=== PATIENT | male | born 1940 | race Caucasian/White ===

== ENCOUNTER 2017-03-10 19:12 | Inpatient (IN) | payer MEDICARE ==
[~2017-03-10] VITALS: Ht 170.2 cm; Wt 80.9 kg
[2017-03-10 19:12] VITALS: BP 154/78
[~2017-03-10 19:12] MED LIST: ASPIRIN ADULT L81 M1 PO; ISOPTIN SR120 M1 PO; TORADOL10 MG PO
[2017-03-10 19:28] LABS: BASO % 0.1 % (0.0-1.0); EOS % 0.1 % (1.0-4.0); HEMATOCRIT 43.1 % (42.0-52.0); HEMOGLOBIN 15.4 g/dl (14.0-18.0); LYMPH # 1.1 10*3/uL (1.3-4.4); LYMPH % 15.9 % (27.0-41.0); MEAN CELL VOLUME 85.7 fl (80.0-94.0); MEAN CORPUSCULAR HGB 30.6 pg (27.0-31.0); MEAN CORPUSCULAR HGB CONC 35.7 g/dl (33.0-37.0); MEAN PLATELET VOLUME 10.1 fl (9.6-12.3); MONO # 0.4 10*3/uL (0.1-1.0); MONO % 5.9 % (3.0-9.0); NEUT # 5.4 10*3/uL (2.3-7.9); NEUT % 77.7 % (47.0-73.0); PLATELET COUNT AUTOMATED 111 10*3/uL (130-400); RED BLOOD COUNT 5.03 10*6/uL (4.50-5.90); RED CELL DISTRI WIDTH 12.3 % (0-14.5); WHITE BLOOD COUNT 6.9 10*3/uL (4.8-10.8)
[2017-03-10 19:38] LABS: PROTHROMBIN TIME 10.7 SECONDS (9.0-12.4)
[2017-03-10 19:46] LABS: ALBUMIN 4.4 gm/dl (3.1-4.5); ALKALINE PHOSPHATASE 142 U/L (45-117); BUN 10 mg/dl (7-24); CARBON DIOXIDE 27 mmol/L (21-32); CHLORIDE 101 mmol/L (98-107); EST GLOM FILT AFRICAN AMERICAN > 60 ml/min; GLUCOSE 261 mg/dL (65-99); MAGNESIUM 1.8 mg/dL (1.5-2.1); POTASSIUM 3.7 mmol/L (3.5-5.1); SGOT/AST 296 IU/L (3-35); SGPT/ALT 158 U/L (12-78); SODIUM 141 mmol/L (136-145); TOTAL PROTEIN 7.7 gm/dL (6.4-8.2)
[2017-03-10 19:48] LABS: TROPONIN I < 0.015 ng/ml (<0.045)
[2017-03-10 19:50] VITALS: BP 158/84
[2017-03-10 20:24] VITALS: BP 158/84
[2017-03-10 20:50] VITALS: BP 164/76
[2017-03-10 21:28] VITALS: BP 154/80
[2017-03-10 23:20] VITALS: BP 146/61
[2017-03-11] VITALS: BP 146/61
[2017-03-11 01:39] LABS: CKMB 0.9 ng/ml (0.5-3.6)
[2017-03-11 04:00] VITALS: BP 153/72
[2017-03-11 05:35] LABS: BUN 9 mg/dl (7-24); CARBON DIOXIDE 28 mmol/L (21-32); CHLORIDE 105 mmol/L (98-107); CHOLESTEROL 122 mg/dL (<200); EST GLOM FILT AFRICAN AMERICAN > 60 ml/min; FREE T4 1.09 ng/dl (0.76-1.46); GLUCOSE 249 mg/dL (65-99); HDL CHOLESTEROL 40 mg/dl (40-60); LDL CHOLESTEROL 69 mg/dL (9-159); POTASSIUM 4.3 mmol/L (3.5-5.1); SODIUM 142 mmol/L (136-145); TRIGLYCERIDES 67 mg/dl (<150); VLDL CHOLESTEROL 13 mg/dL (6-40)
[2017-03-11 05:41] LABS: THYROID STIM HORMONE (HS) 0.918 uIU/ml (0.358-4.75)
[2017-03-11 05:45] LABS: CKMB 0.9 ng/ml (0.5-3.6)
[2017-03-11 05:58] LABS: BASO % 0.4 % (0.0-1.0); EOS % 0.4 % (1.0-4.0); HEMATOCRIT 38.2 % (42.0-52.0); HEMOGLOBIN 13.5 g/dl (14.0-18.0); LYMPH # 1.3 10*3/uL (1.3-4.4); LYMPH % 27.3 % (27.0-41.0); MEAN CORPUSCULAR HGB 31.1 pg (27.0-31.0); MEAN CORPUSCULAR HGB CONC 35.3 g/dl (33.0-37.0); MEAN PLATELET VOLUME 10.6 fl (9.6-12.3); MONO # 0.3 10*3/uL (0.1-1.0); MONO % 7.4 % (3.0-9.0); NEUT % 64.3 % (47.0-73.0); PLATELET COUNT AUTOMATED 92 10*3/uL (130-400); RED BLOOD COUNT 4.34 10*6/uL (4.50-5.90); RED CELL DISTRI WIDTH 12.4 % (0-14.5); WHITE BLOOD COUNT 4.6 10*3/uL (4.8-10.8)
[2017-03-11 06:24] LABS: PROTHROMBIN TIME 11.1 SECONDS (9.0-12.4)
[2017-03-11 07:25] LABS: HEMOGLOBIN A1c 9.2 % (4.8-5.6)
[2017-03-11 07:27] LABS: FOLIC ACID 14.04 ng/mL (>5.38); VITAMIN D, 25-HYDROXY 32.4 ng/mL (30-100)
[2017-03-11 08:00] VITALS: BP 158/68
[2017-03-11 12:00] VITALS: BP 143/67
[2017-03-11 16:00] VITALS: BP 160/66
[2017-03-11 20:00] VITALS: BP 136/62
[2017-03-12] VITALS (9 sets, daily range): BP systolic 119–187; BP diastolic 50–88
[2017-03-12 06:04] LABS: BASO % 0.6 % (0.0-1.0); EOS % 0.4 % (1.0-4.0); HEMATOCRIT 40.1 % (42.0-52.0); IG # 0.1 10*3/uL (0.0-0.1); LYMPH # 1.2 10*3/uL (1.3-4.4); LYMPH % 25.7 % (27.0-41.0); MEAN CELL VOLUME 87.4 fl (80.0-94.0); MEAN CORPUSCULAR HGB 30.5 pg (27.0-31.0); MEAN CORPUSCULAR HGB CONC 34.9 g/dl (33.0-37.0); MEAN PLATELET VOLUME 10.8 fl (9.6-12.3); MONO # 0.3 10*3/uL (0.1-1.0); MONO % 5.9 % (3.0-9.0); NEUT # 3.2 10*3/uL (2.3-7.9); NEUT % 66.3 % (47.0-73.0); PLATELET COUNT AUTOMATED 103 10*3/uL (130-400); RED BLOOD COUNT 4.59 10*6/uL (4.50-5.90); RED CELL DISTRI WIDTH 12.5 % (0-14.5); WHITE BLOOD COUNT 4.8 10*3/uL (4.8-10.8)
[2017-03-12 06:14] LABS: BUN 11 mg/dl (7-24); CARBON DIOXIDE 24 mmol/L (21-32); CHLORIDE 106 mmol/L (98-107); GLUCOSE 177 mg/dL (65-99); POTASSIUM 3.7 mmol/L (3.5-5.1); SODIUM 143 mmol/L (136-145)
[2017-03-12 06:17] LABS: EST GLOM FILT AFRICAN AMERICAN > 60 ml/min
[2017-03-12 07:12] LABS: HEPATITIS C VIRUS ANTIBODY 0.1 s/co (0.0-0.9)
[2017-03-12 09:32] LABS: ALBUMIN 3.6 gm/dl (3.1-4.5); BILIRUBIN, DIRECT 1.8 mg/dL (0.0-0.2); TOTAL PROTEIN 6.7 gm/dL (6.4-8.2)
[2017-03-12 18:46] LABS: HEMATOCRIT 38.9 % (42.0-52.0); HEMOGLOBIN 13.7 g/dl (14.0-18.0)
[2017-03-13] VITALS: BP 140/86
[2017-03-13 06:06] LABS: BASO % 0.1 % (0.0-1.0); EOS % 0.1 % (1.0-4.0); HEMATOCRIT 38.5 % (42.0-52.0); HEMOGLOBIN 13.4 g/dl (14.0-18.0); LYMPH # 0.9 10*3/uL (1.3-4.4); LYMPH % 12.9 % (27.0-41.0); MEAN CELL VOLUME 87.9 fl (80.0-94.0); MEAN CORPUSCULAR HGB 30.6 pg (27.0-31.0); MEAN CORPUSCULAR HGB CONC 34.8 g/dl (33.0-37.0); MEAN PLATELET VOLUME 10.5 fl (9.6-12.3); MONO # 0.5 10*3/uL (0.1-1.0); MONO % 6.6 % (3.0-9.0); NEUT # 5.6 10*3/uL (2.3-7.9); NEUT % 79.9 % (47.0-73.0); PLATELET COUNT AUTOMATED 99 10*3/uL (130-400); RED BLOOD COUNT 4.38 10*6/uL (4.50-5.90); RED CELL DISTRI WIDTH 12.6 % (0-14.5)
[2017-03-13 06:34] LABS: ALBUMIN 3.1 gm/dl (3.1-4.5); ALKALINE PHOSPHATASE 143 U/L (45-117); BILIRUBIN, TOTAL 2.2 mg/dl (0.2-1.0); BUN 11 mg/dl (7-24); CARBON DIOXIDE 24 mmol/L (21-32); CHLORIDE 107 mmol/L (98-107); EST GLOM FILT AFRICAN AMERICAN > 60 ml/min; GLUCOSE 122 mg/dL (65-99); POTASSIUM 3.6 mmol/L (3.5-5.1); SGOT/AST 173 IU/L (3-35); SGPT/ALT 210 U/L (12-78); SODIUM 142 mmol/L (136-145)
[2017-03-13 08:00] VITALS: BP 156/68
[2017-03-13 12:00] VITALS: BP 144/64
[2017-03-13] MEDS ORDERED: LISINOPRIL5 MG PO (13:18)
[2017-03-13] MEDS ORDERED: GLUCOPHAGE500 MG PO (13:18)
== END 2017-03-13 14:54 | disposition home or self-care (01) | DRG 418 ==
LOC: ED 19:12 → 5E 21:55 → EDHOLD 21:55 → 5E 22:02
PROVIDERS: Emergency Medicine Emergency Medical Services; Family Medicine; Internal Medicine; Internal Medicine Nephrology; Surgery
PROC: 0FT44ZZ Resection of Gallbladder, Percutaneous Endoscopic Approach (ICD-10-PCS; principal; 2017-03-12)
DX: K80.43 Calculus of bile duct with acute cholecystitis with obstruction (principal); E44.0 Moderate protein-calorie malnutrition; E11.65 Type 2 diabetes mellitus with hyperglycemia; R00.1 Bradycardia, unspecified; I10 Essential (primary) hypertension; R74.0 Nonspecific elevation of levels of transaminase and lactic acid dehydrogenase [LDH]; H91.93 Unspecified hearing loss, bilateral; K44.9 Diaphragmatic hernia without obstruction or gangrene; Z79.82 Long term (current) use of aspirin

== ENCOUNTER 2019-09-16 09:22 | Emergency (ER) | payer MEDICARE ==
[~2019-09-16] VITALS: Ht 177.8 cm; Wt 68.0 kg
[~2019-09-16 09:22] MED LIST changes: +GLUCOPHAGE500 MG PO; +LISINOPRIL5 MG PO
[2019-09-16 09:59] LABS: BASO % 0.6 % (0.0-1.0); EOS % 0.6 % (1.0-4.0); HEMATOCRIT 41.4 % (42.0-52.0); HEMOGLOBIN 14.4 g/dl (14.0-18.0); LYMPH # 1.5 10*3/uL (1.3-4.4); MEAN CELL VOLUME 87.9 fl (80.0-94.0); MEAN CORPUSCULAR HGB 30.6 pg (27.0-31.0); MEAN CORPUSCULAR HGB CONC 34.8 g/dl (33.0-37.0); MEAN PLATELET VOLUME 9.8 fl (9.6-12.3); MONO # 0.4 10*3/uL (0.1-1.0); MONO % 7.3 % (3.0-9.0); NEUT % 60.3 % (47.0-73.0); PLATELET COUNT AUTOMATED 148 10*3/uL (130-400); RED BLOOD COUNT 4.71 10*6/uL (4.50-5.90)
[2019-09-16 10:11] LABS: ACT PARTIAL THROMBO TIME 27.5 SECONDS (20.0-32.1); INTERNATIONAL NORM RATIO 0.9 (2.0-3.5)
[2019-09-16 10:20] LABS: ALBUMIN 3.9 gm/dl (3.1-4.5); ALKALINE PHOSPHATASE 92 U/L (45-117); BUN 16 mg/dl (7-24); CHLORIDE 102 mmol/L (98-107); CREATININE 1.08 mg/dL (0.70-1.30); POTASSIUM 4.3 mmol/L (3.5-5.1); SGOT/AST 10 IU/L (3-35); SGPT/ALT 19 U/L (12-78); SODIUM 137 mmol/L (136-145); TOTAL PROTEIN 7.3 gm/dL (6.4-8.2); TROPONIN I < 0.015 ng/ml (<0.045)
== END 2019-09-16 12:00 | disposition short-term general hospital (02) ==
LOC: ED 09:22
PROVIDERS: Emergency Medicine
DX: I60.9 Nontraumatic subarachnoid hemorrhage, unspecified (principal); I10 Essential (primary) hypertension; E11.9 Type 2 diabetes mellitus without complications; Z79.82 Long term (current) use of aspirin

== ENCOUNTER 2019-10-07 14:57 | Emergency (ER) | payer MEDICARE ==
[~2019-10-07] VITALS: Wt 64.0 kg
[2019-10-07 16:05] LABS: HEMATOCRIT 39.8 % (42.0-52.0); HEMOGLOBIN 13.6 g/dl (14.0-18.0); MEAN CELL VOLUME 89.8 fl (80.0-94.0); MEAN CORPUSCULAR HGB 30.7 pg (27.0-31.0); MEAN CORPUSCULAR HGB CONC 34.2 g/dl (33.0-37.0); MEAN PLATELET VOLUME 9.9 fl (9.6-12.3); PLATELET COUNT AUTOMATED 143 10*3/uL (130-400); RED BLOOD COUNT 4.43 10*6/uL (4.50-5.90); RED CELL DISTRI WIDTH 12.1 % (0-14.5)
[2019-10-07 16:15] LABS: ACT PARTIAL THROMBO TIME 28.4 SECONDS (20.0-32.1)
[2019-10-07 16:19] LABS: ALBUMIN 3.8 gm/dl (3.1-4.5); ALKALINE PHOSPHATASE 68 U/L (45-117); BUN 16 mg/dl (7-24); CHLORIDE 108 mmol/L (98-107); CREATININE 0.95 mg/dL (0.70-1.30); LIPASE 46 U/L (73-393); POTASSIUM 4.3 mmol/L (3.5-5.1); SGOT/AST 24 IU/L (3-35); SGPT/ALT 28 U/L (12-78); SODIUM 140 mmol/L (136-145)
[2019-10-07 16:20] LABS: TROPONIN I < 0.015 ng/ml (<0.045)
[2019-10-07 16:26] LABS: ATYPICAL LYMPHS 4 % (0-0); BASOPHILS 2 % (0-1); TOTAL CELLS COUNTED 100 #CELLS
[2019-10-07 16:27] LABS: PLATELET SUFFICIENCY NORMAL (NORMAL)
== END 2019-10-07 18:49 | disposition short-term general hospital (02) ==
LOC: ED 14:57
PROVIDERS: Emergency Medicine
DX: I63.9 Cerebral infarction, unspecified (principal); R41.82 Altered mental status, unspecified; E11.9 Type 2 diabetes mellitus without complications; I10 Essential (primary) hypertension; Z79.899 Other long term (current) drug therapy; Z79.82 Long term (current) use of aspirin; Z90.49 Acquired absence of other specified parts of digestive tract

== ENCOUNTER 2019-10-25 16:19 | Inpatient (IN) | payer MEDICARE ==
[~2019-10-25] VITALS: Ht 170.1 cm; Wt 63.5 kg
[2019-10-25] MEDS ORDERED: ATORVASTATIN CA40 M1 PO (16:28)
[2019-10-25] MEDS ORDERED: APAP500 MG PO (16:28)
[2019-10-25] MEDS ORDERED: VITAMIN D350 MC1 PO (16:29)
[2019-10-25] MEDS ORDERED: COUMADIN3 M1 PO (16:30)
[2019-10-25] MEDS ORDERED: CYANOCOBALAMIN PO (16:31)
[2019-10-25] MEDS ORDERED: HUMALOG100 UNIT/1 SQ (16:33)
[2019-10-25 16:34] VITALS: BP 114/60
[2019-10-25 16:44] LABS: BASO % 0.4 % (0.0-1.0); EOS # 0.1 10*3/uL (0.0-0.4); EOS % 1.3 % (1.0-4.0); HEMATOCRIT 33.7 % (42.0-52.0); HEMOGLOBIN 11.5 g/dl (14.0-18.0); LYMPH # 1.1 10*3/uL (1.3-4.4); LYMPH % 22.7 % (27.0-41.0); MEAN CELL VOLUME 91.1 fl (80.0-94.0); MEAN CORPUSCULAR HGB 31.1 pg (27.0-31.0); MEAN CORPUSCULAR HGB CONC 34.1 g/dl (33.0-37.0); MEAN PLATELET VOLUME 9.9 fl (9.6-12.3); MONO # 0.3 10*3/uL (0.1-1.0); MONO % 6.4 % (3.0-9.0); NEUT # 3.2 10*3/uL (2.3-7.9); NEUT % 68.8 % (47.0-73.0); PLATELET COUNT AUTOMATED 143 10*3/uL (130-400); RED CELL DISTRI WIDTH 12.5 % (0-14.5); WHITE BLOOD COUNT 4.7 10*3/uL (4.8-10.8)
[2019-10-25 16:56] LABS: ACT PARTIAL THROMBO TIME 28.2 SECONDS (20.0-32.1)
[2019-10-25] MEDS ORDERED: LANTUS SOL100 UNIT/1 SC (16:59)
[2019-10-25 17:00] LABS: ALBUMIN 3.3 gm/dl (3.1-4.5); ALKALINE PHOSPHATASE 69 U/L (45-117); BUN 17 mg/dl (7-24); CHLORIDE 109 mmol/L (98-107); CREATININE 0.89 mg/dL (0.70-1.30); POTASSIUM 3.6 mmol/L (3.5-5.1); SGOT/AST 20 IU/L (3-35); SGPT/ALT 29 U/L (12-78); SODIUM 144 mmol/L (136-145); TOTAL PROTEIN 6.3 gm/dL (6.4-8.2)
[2019-10-25] MEDS ORDERED: Lovenox40 MG/0.4 SC (17:00)
[2019-10-25] MEDS ORDERED: ZESTRIL10 MG PO (17:00)
[2019-10-25] MEDS ORDERED: MELATONIN3 MG PO (17:01)
[2019-10-25] MEDS ORDERED: MULTIVITAMINS1 EAC6 PO (17:01)
[2019-10-25 17:02] LABS: TROPONIN I < 0.015 ng/ml (<0.045)
[2019-10-25] MEDS ORDERED: PLAVIX75 M1 PO (17:03)
[2019-10-25] MEDS ORDERED: NICODERM CQ1 EACH TD (17:03)
[2019-10-25] MEDS ORDERED: PRANDIN1 MG PO (17:04)
[2019-10-25] MEDS ORDERED: SENNA LAX8.6 M1 PO (17:05)
[2019-10-25] MEDS ORDERED: SEROQUEL25 MG PO (17:06)
[2019-10-25] MEDS ORDERED: B-1100 M1 PO (17:07)
[2019-10-25] MEDS ORDERED: RISPERIDONE0.25 M2 PO (17:10)
[2019-10-25] MEDS ORDERED: RISPERDAL0.5 MG PO (17:11)
[2019-10-25 19:20] VITALS: BP 116/64
[2019-10-25 20:00] VITALS: BP 167/65
[2019-10-25 20:15] VITALS: BP 167/65
--- NOTE | 2019-10-25 20:15 | NUR ---
A 79, admitted to 5E, under the services of RAFIA Frias DO with a diagnosis of ENCEPHALOPATHY. Chief complaint is CHANGE IN MENTAL STATUS , FREQUENT FALLS AND BEING COMBATIVE. Patient arrived via ambulance from ER. Monitor applied. Initial assessment completed. Vital signs taken and recorded. RAFIA FRIAS DO notified of admission to the unit. Orders received. See assessment for past medical history, medications and allergies. Patient and/or family oriented to unit. visitation policy reviewed. Clothing/patient valuable form completed. CHRIS RAO
--- NOTE | 2019-10-25 20:25 | NUR ---
BRENDA PERRY CALLED. PATIENT SWINGING AT STAFF AND SCREAMING. TRYING TO PUT BOOTS ON AND LEAVE. CALLED DR. DUGGAN AND NEW ORDERS RECEIVED.
--- NOTE | 2019-10-25 20:33 | NUR ---
GEODON 20MG IV GIVEN BY NE ANAYA RN. PATIENT TOLERATED WELL AND WAS VERY COOPERATIVE. RESTING IN BED AT THIS TIME.
--- NOTE | 2019-10-25 21:30 | NUR ---
PATIENT REFUSED DOUG SARMIENTO AND SCD'S.
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
--- NOTE | 2019-10-26 05:46 | NUR ---
PATIENT AGITATED AND REFUSED BLOOD WORK.
[2019-10-26 06:33] LABS: CLARITY CLEAR (CLEAR); COLOR YELLOW (YELLOW)
[2019-10-26 06:34] LABS: BILIRUBIN NEGATIVE (NEGATIVE); BLOOD NEGATIVE (NEGATIVE); GLUCOSE 1+ (NEGATIVE); KETONE NEGATIVE (NEGATIVE); LEUKO ESTERASE NEGATIVE (NEGATIVE); NITRITE NEGATIVE (NEGATIVE); UROBILINOGEN 0.2 E.U./dl (0.2-1.0)
[2019-10-26 06:36] LABS: EPITHELIAL CELLS 0-2
--- NOTE | 2019-10-26 07:00 | NUR ---
REPORT RECEIVED. PT AWAKE AT THIS TIME. PT APPEARS TO BE COMFORTABLE AT THIS TIME. NO S/S OF DISTRESS NOTED.
--- NOTE | 2019-10-26 07:31 | NUR ---
VITAL SIGNS STABLE. A&OX1. JIMI. SKIN PINK, WARM, DRY. POSITIVE PEDAL PULSES. SKIN TURGOR NON-TENTED. HR 86 REGULAR. CAPILLARY REFILL < 3 SECONDS. HEART SOUNDS NORMAL. SPO2 96% ON R/A. LUNGS CLEAR THROUGHOUT. ABDOMEN SOFT, NON-TENDER, NON-DISTENDED. BOWEL SOUNDS ACTIVE X4. IV SITE IN THE RIGHT HAND IS INTACT, NO S/S OF INFECTION. WILL CONTIUNE TO ASSESS. JOÃO LIU SPCC.
[2019-10-26 07:56] VITALS: BP 126/84
--- NOTE | 2019-10-26 08:11 | NUR ---
PHYSICAL THERAPY Screen and PT eval received will follow thank you Janis Baird PT
--- NOTE | 2019-10-26 08:35 | NUR ---
PALLIATIVE CARE CONSULT CALLED TO [facility].
--- NOTE | 2019-10-26 08:59 | NUR ---
CONSULT LEFT WITH U
--- NOTE | 2019-10-26 09:21 | NUR ---
Nursing screen and OT orders received. Will follow up with patient. Thank you. Mindy Price, OTR/L
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
[2019-10-26 10:00] VITALS: BP 160/74
--- NOTE | 2019-10-26 10:30 | NUR ---
Check Grader in to see patient. He is short term at [facility]. Not able to answer questions at this time. associate media planner following.
--- NOTE | 2019-10-26 10:45 | NUR ---
PATIENT IS SITTING IN CHAIR LOOKING OUTSIDE. WILL CONTINUE TO MONITOR. JOÃO LIU SPCC.
--- NOTE | 2019-10-26 11:03 | NUR ---
DR. COMER NOTIFIED OF POSSIBLE BED OPEN IN U FOR PT PLACEMENT.
--- NOTE | 2019-10-26 11:30 | NUR ---
PATIENT WAS SITTING IN CHAIR WHEN HE BECAME IRRITABLE. VERBALY AND PHYSICALLY COMBATIVE. PATIENT GOT HIMSELF UP FROM CHAIR. WAS ABLE TO GET PATIENT BACK IN CHAIR, AND NOW IN DOOR WAY OF ROOM ACROSS FROM NURSES STATION. WILL CONTINUE TO MONITOR. JOÃO LIU [facility]
--- NOTE | 2019-10-26 13:05 | NUR ---
Spoke to Mitchell at [facility] regarding inpatient consults. Spoke to Sophia who states their nurse practitioner is not able to admit the patient while they are in the hospital. They would have a building maintenance supervisor come out and have consents signed and talk about their services. Left message with [facility] regarding palliative care. Awaiting return call. Spoke to Dr. Winkler and notified of above.
--- NOTE | 2019-10-26 13:18 | NUR ---
PATIENT IS QUIET IN CHAIR IN THE DOOR WAY OF ROOM. JOÃO GODINEZCC.
--- NOTE | 2019-10-26 13:45 | NUR ---
PHYSICAL THERAPY Attempeted to see patient for assessment per nursing pt being transfered to U within the hour. Will await for new orders for PT once pt transfered to U. Miranda Baird PT
--- NOTE | 2019-10-26 13:52 | NUR ---
DR. COMER NOTIFIED OF PT HOME MEDICATIONS STILL NOT ORDERED AT THIS TIME.
--- NOTE | 2019-10-26 14:08 | NUR ---
Occupational therapy orders received and chart reviewed. Per discussion with nursing, patient is being transferred to the SBHU. Will follow up with patient in the SBHU when new orders are received. Thank you. Mindy Price OTR/L
--- NOTE | 2019-10-26 14:36 | NUR ---
Received call from [facility]. They are not able to see patient as an inpatient. Dr. Winkler notified.
--- NOTE | 2019-10-26 15:13 | NUR ---
discussed with Marisol strategic planner. If family does not already have active HPOA papers in place, they cannot sign patient into U. Daughter is Alina and she is extremely hard of hearing, can read some lips or write back and forth on a tablet. Son in law is King Granados [phone] and provides most of the communication between patient/daughter and outside. If patient is to go to U he will have to be pink slipped.
--- NOTE | 2019-10-26 15:37 | NUR ---
Spoke to Sophia at [facility]. She and the nurse practitioner will see patient about 2pm tomorrow. Questioned if they would see patient on U and she states they would. Sophia is going to reach out to the family to see about a meeting here at the hospital around 2pm tomorrow.
--- NOTE | 2019-10-26 15:48 | NUR ---
Faxed clinical to [facility] at [phone]
[2019-10-26 16:00] VITALS: BP 160/68
--- NOTE | 2019-10-26 17:09 | NUR ---
Discharge instructions reviewed with patient/family. Patient receptive and verbalizes understanding. Follow-up care arranged. Written instructions given to patient/family. YVETTE MARS
[2019-10-26] MEDS ORDERED: Lovenox40 MG/0.4 SC (17:34)
== END 2019-10-26 17:09 | disposition home health service (06) | DRG 71 ==
LOC: ED 16:19 → 5E 18:00 → EDHOLD 18:00 → 5E 20:00
PROVIDERS: Emergency Medicine; ADMIT Emergency Medicine
DX: G93.41 Metabolic encephalopathy (principal); F23 Brief psychotic disorder; E44.1 Mild protein-calorie malnutrition; Z66 Do not resuscitate; Z51.5 Encounter for palliative care; D64.9 Anemia, unspecified; E87.8 Other disorders of electrolyte and fluid balance, not elsewhere classified; E11.65 Type 2 diabetes mellitus with hyperglycemia; I10 Essential (primary) hypertension; F63.81 Intermittent explosive disorder; F41.9 Anxiety disorder, unspecified; F01.50 Vascular dementia, unspecified severity, without behavioral disturbance, psychotic disturbance, mood disturbance, and anxiety; G30.9 Alzheimer's disease, unspecified; Z68.21 Body mass index [BMI] 21.0-21.9, adult; Z79.899 Other long term (current) drug therapy; Z79.82 Long term (current) use of aspirin; Z79.4 Long term (current) use of insulin; Z86.73 Personal history of transient ischemic attack (TIA), and cerebral infarction without residual deficits; Z90.49 Acquired absence of other specified parts of digestive tract; Z89.029 Acquired absence of unspecified finger(s); Z80.8 Family history of malignant neoplasm of other organs or systems

== ENCOUNTER 2019-10-26 15:41 | Inpatient (IN) | payer MEDICARE ==
[~2019-10-26] VITALS: Ht 170.1 cm; Wt 63.5 kg
[~2019-10-26 15:41] MED LIST changes: +APAP500 MG PO; +ATORVASTATIN CA40 M1 PO; +B-1100 M1 PO; +COUMADIN3 M1 PO; +CYANOCOBALAMIN PO; +HUMALOG100 UNIT/1 SQ; +LANTUS SOL100 UNIT/1 SC; +Lovenox40 MG/0.4 SC; +MELATONIN3 MG PO; +MULTIVITAMINS1 EAC6 PO; +NICODERM CQ1 EACH TD; +PLAVIX75 M1 PO; +PRANDIN1 MG PO; +RISPERDAL0.5 MG PO; +RISPERIDONE0.25 M2 PO; +SENNA LAX8.6 M1 PO; +SEROQUEL25 MG PO; +VITAMIN D350 MC1 PO; +ZESTRIL10 MG PO
--- NOTE | 2019-10-26 17:15 | NUR ---
GURU NAIDU a 79 year old M admitted via wheel chair from the [facility] 5TH FLOOR as a emergency 72 hr. hold admission. Arrived on unit at 1715. ALLERGIES: NKDA. Vital signs are: 98.2-89-18 147/79. 99% ROOM AIR. PT IS PINK SLIPPED. PT DID NOT SIGN ADMISSION PAPERWORK UPON ADMISSION TO UNIT D/T LEVEL OF CONFUSION. Admitted under the services of Dr. SEGUNDO MUNOZ,[facility]. A search was conducted and hazardous articles were removed. Client was oriented to the unit. TARIQ ALMEIDA
[2019-10-26 17:28] VITALS: BP 147/79
[2019-10-26] MEDS ORDERED: Lovenox40 MG/0.4 SC (17:34)
--- NOTE | 2019-10-26 18:05 | NUR ---
NOTIFIED OF CONSULT FOR MEDICAL MANAGEMENT.
[2019-10-26 18:33] VITALS: BP 147/79
--- NOTE | 2019-10-26 19:43 | NUR ---
PT UNABLE TO PARTICIPATE IN GERIATRIC DEPRESSION SCREENING, SUICIDE RISK ASSESSMENT OR MINI MENTAL EXAM D/T LEVEL OF CONFUSION. PT PROVIDING NONSENSICAL ANSWERS TO QUESTIONS ASKED.
[2019-10-26 20:01] VITALS: BP 136/67
--- NOTE | 2019-10-26 20:43 | NUR ---
EVENING/CRAFT/MOVIE PT CHOOSES NOT TO PARTICIPATE BUT DOES ATTEND GROUP. PT WATCHING MOVIE ON AND OFF AT THIS TIME. PT IS A LATE ADMIT AND STAFF WILL ATTEMPT ASSESSMENT TOMORROW.
--- NOTE | 2019-10-26 22:23 | NUR ---
24 HR chart check completed.
--- NOTE | 2019-10-26 22:39 | NUR ---
DR BUCK NOTIFIED THAT PTS HOME MEDS HAVE NOT BEEN CONTINUED YET. ORDERS RECEIVED TO ORDER LANTUS & HE WOULD ORDER OTHER HOME MEDS.
--- NOTE | 2019-10-26 22:40 | NUR ---
PT REFUSED TO ALLOW STAFF TO MEASURE WOUND ON COCCYX. INCREASED AGITATION WITH ATTEMPTS & HANDS ON CARE
--- NOTE | 2019-10-26 22:50 | NUR ---
P-CONFUSION, ANXIETY, COMMUNICATION BARRIER I-ASSESS ORIENTATION, ADMINISTER MEDS, MONITOR SLEEP R-ALERT TO PERSON ONLY, SPEECH GARBLED & DIFFICULT TO UNDERSTAND AT TIMES & VERY PRESSURED. PT LAUGHS AT HIS STATEMENTS. ATE SNACK. HAS BEEN SITTING IN A ABRAM CHAIR. AMBULATED WITH 1 STAFF ASSIST TO BATHROOM. REQUIRES REDIRECTION & PROMPTS. CONFUSION EVIDENT. INCREASED ANXIETY & RESTLESS AT TIMES. MEDICATATED WITH ATIVAN 1 MG PO @ 2248. P-CONTINUE TO MONITOR & PROVIDE PHYSICAL ASSISTANCE, EMOTIONAL SUPPORT
--- NOTE | 2019-10-27 00:40 | NUR ---
DR HE ON UNIT TO SEE PT FOR MEDICAL CONSULT.
--- NOTE | 2019-10-27 01:15 | NUR ---
ATIVAN INEFFECTIVE. CONTINUES TO BE RESTLESS & ANXIOUS DESPITE ALTERNATE RELAXATIONS OF TV, WARM BLANKETS, MUSIC, VERBAL INTERACTION, PLAYING BLOCKS. MEDICATED WITH GEODON 10 MG IM @ 0051 WHICH HAS BEEN EFFECTIVE. PT WAS ASSITED TO BED BY 2 STAFF.
--- NOTE | 2019-10-27 05:17 | NUR ---
GURU NAIDU [id number] Please refer to the physician's history and physical for past medical history, comorbid conditions, and allergies. Diagnosis: INTERMITTENT EXPLOSIVE DISORDER Enoc Score: 16,AT RISK WOUND DESCRIPTIONS: Wound Number: 1 Location of the wound: coccyx Type of wound: stage 2 Thickness: Partial Size: 2.0cm x 0.5cm x 0.1cm Tunneling: none Undermining: none Sinus Tract: none Presence of Exudate: Serous Amount: Light Color: Red Odor: None Periwound Skin Appearance: Normal Wound edges: approximated Pain (associated with wound): none at time of assessment How does patient state this happened? pt unable to state how this happened Intact scabbed areas noted to left hand, left knee and right knee. No drainage noted at time of assessment. No redness noted at time of assessment. Surface the patient is resting on: Proform SKIN PREVENTION RECOMMENDATION: 1. Pressure redistribution support surface as appropriate 2. Elevate heels 3. Remove boots/TEDS every shift and reapply 4. Head of bed 30 degrees as tolerated 5. Assess nutrition and hydration 6. Manage moisture 7. Avoid the use of containment devices while in bed 8. Use absorptive products on surfaces limit layers of linens on bed 9. Turn and reposition every 1-2 hours in bed and every 1 hour in chair as tolerated 10. Weight shifts every 15 minutes while up in chair 11. Offloading with pillows or device to keep heels elevated off bed 12. Monitor skin at least every shift 13. Inspect under medical devices twice a day WOUND TREATMENT RECOMMENDATIONS: Stage 2 guidelines: Cleanse coccyx with soap and water and apply calazime every shift and prn for soiling. Wheelchair cushion when oob.
--- NOTE | 2019-10-27 05:54 | NUR ---
GEODON HAS BEEN EFFECTIVE & PT HAS SLEPT
--- NOTE | 2019-10-27 06:21 | NUR ---
AM BEDSIDE GLUCOSE THIS AM 65
[2019-10-27 06:29] LABS: BASO % 0.9 % (0.0-1.0); EOS # 0.1 10*3/uL (0.0-0.4); EOS % 1.1 % (1.0-4.0); HEMATOCRIT 35.6 % (42.0-52.0); HEMOGLOBIN 12.4 g/dl (14.0-18.0); LYMPH # 1.3 10*3/uL (1.3-4.4); LYMPH % 27.8 % (27.0-41.0); MEAN CELL VOLUME 90.1 fl (80.0-94.0); MEAN CORPUSCULAR HGB 31.4 pg (27.0-31.0); MEAN CORPUSCULAR HGB CONC 34.8 g/dl (33.0-37.0); MEAN PLATELET VOLUME 9.8 fl (9.6-12.3); MONO # 0.3 10*3/uL (0.1-1.0); MONO % 5.9 % (3.0-9.0); NEUT # 2.9 10*3/uL (2.3-7.9); NEUT % 64.1 % (47.0-73.0); PLATELET COUNT AUTOMATED 168 10*3/uL (130-400); RED BLOOD COUNT 3.95 10*6/uL (4.50-5.90); RED CELL DISTRI WIDTH 12.4 % (0-14.5); WHITE BLOOD COUNT 4.6 10*3/uL (4.8-10.8)
[2019-10-27 06:46] LABS: ALBUMIN 3.6 gm/dl (3.1-4.5); ALKALINE PHOSPHATASE 72 U/L (45-117); BUN 11 mg/dl (7-24); CHLORIDE 111 mmol/L (98-107); CHOLESTEROL 97 mg/dL (<200); CREATININE 0.78 mg/dL (0.70-1.30); HDL CHOLESTEROL 48 mg/dl (40-60); LDL CHOLESTEROL 36 mg/dL (9-159); POTASSIUM 3.4 mmol/L (3.5-5.1); SGOT/AST 19 IU/L (3-35); SGPT/ALT 26 U/L (12-78); SODIUM 146 mmol/L (136-145); TOTAL PROTEIN 6.9 gm/dL (6.4-8.2); TRIGLYCERIDES 66 mg/dl (<150); VLDL CHOLESTEROL 13 mg/dL (6-40)
[2019-10-27 07:25] LABS: VITAMIN D, 25-HYDROXY 32.8 ng/mL (30-100)
[2019-10-27 07:59] VITALS: BP 130/64
--- NOTE | 2019-10-27 08:00 | NUR ---
DR. GENTILE NOTIFIED OF ABNORMAL LABS AND MORNING BLOOD SUGAR OF 65. PATIENT REFUSING BREAKFAST. PROVIDED PATIENT WITH PUDDING WITH 3 SUGAR PACKET. PATIENT ATE 100%. PATIENT RETURNED TO SLEEPING IN BED WITH EYES CLOSED. BED ALARM ACTIVATED.
--- NOTE | 2019-10-27 09:30 | NUR ---
BLOOD SUGAR RECHECK UP TO 111.
--- NOTE | 2019-10-27 10:00 | NUR ---
PATIENT AWAKE AND UP IN ABRAM CHAIR. REORDER BREAKFAST TRAY. PATIENT AT 100% WITH STAFF ASSISTANCE.
--- NOTE | 2019-10-27 10:00 | NUR ---
Treatment Plan meeting was held with CARLOS Shaver, RN, AT, COMPUTER GAME TESTER-S and Senior Construction Manager. Plan for discharge when Stable. Pt. came to [facility] From [facility]. Will reach out to facility today to discuss discharge planning.
--- NOTE | 2019-10-27 10:40 | NUR ---
Dr. Allen notified of wound care recommendations.
--- NOTE | 2019-10-27 11:31 | NUR ---
Left a voicemail message for pt's son-in-law King Granados requesting a return call to gather further pt information and discuss discharge needs.
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
--- NOTE | 2019-10-27 11:50 | NUR ---
WATER COMMISSIONER REPORT TO THIS NURSE THAT PATIENT WAS BLEEDING. AREA CLEANSE WITH NORNAL SALINE AND DRESSING APPLIED. SKIN TEAR TO LEFT ELBOW. 0.1X0.2X0.1. PATIENT IN GERICHAIR MOVING UPPER EXTREMITIES AND BUMPED ON TABLE AND GERICHAIR. PATIENT PROVIDED WITH ABRAM SLEEVE FOR PROTECTION. DR. GENTILE AND DIRECTOR GLOBAL SALES NOTIFIED. NEW TREATMENT ORDER IN PLACE.
--- NOTE | 2019-10-27 12:25 | NUR ---
DR LOPES ON UNIT TO ASSESS PT, UPDATE PROVIDED.
--- NOTE | 2019-10-27 12:56 | NUR ---
Met with pt this AM after learning that pt responds to written questions. Wrote to pt this scenario writer's name. Pt looked at this scenario writer and nodded. Pt attempted to speak but his speech was garbled. Wrote that pt was in the hospital. Pt read this and again looked at this scenario writer and nodded his head up and down. Pt again spoke with garbled speech. After meeting with pt left a message for pt's son-in-law King Granados who is the spokesperson for pt's daughter Alina who is hearing impaired. King returned this scenario writer's call. [place] that pt's health has declined in the past year due to CVAs. Pt has always been very active. He is deaf after losing his hearing slowly over the years. Pt responds to written, simple questions/statements. He is slow to respond and his speech can be garbled or clearer at times. King believes that the change in pt's mental status was medication induced. Per King's opinion, pt does not respond well to antipsychotics. King also stated that pt is having a difficult time adjusting to living in a NF. King and Alina would like for pt to live with them but he requires too much care at this time. Discussed discharge plan. Provided verbal list of NFs in [place]. [place], [place], and [place]. King is not sure of preferred NF at this time but would like pt as close to [place] as possible. King approves of referrals being made to local and surrounding NFs and learining of pt acceptance/denial to assist in the final decision.
--- NOTE | 2019-10-27 15:52 | NUR ---
PHYSICAL THERAPY Screen received pt resident of [facility] has hx of falls w recent SAH and CVA. Admitted to BHU for agitation. Please consult PT for evaluation when pt is able to participate in assessment, thank you. Janis Baird PT
--- NOTE | 2019-10-27 15:55 | NUR ---
Nursing screen received and chart reviewed. Patient admitted to [facility] for increase in agitation. Patient is from [facility] with a PMH including a recent SAH, dementia, and Alzheimer's. If patient has a decline in ADLs, transfers, or functional mobility, please send OT orders. Thank you. Mindy Price, OTR/L
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
--- NOTE | 2019-10-27 15:58 | NUR ---
PM GROUP PT WAS PRESENT FOR AFTERNOON GROUP THERAPY SITTING UPRIGHT IN A ABRAM CHAIR WITH THE TRAY LOCKED ON. PT HAD EYES CLOSED BUT WAS BANGING, RATTLING, AND PUSHING ON THE TRAY. PT IS DEAF AND WOULD NOT RESPOND TO VISUAL PROMPTING. PT WAS REMOVED FROM THE DAYROOM BY [facility].
--- NOTE | 2019-10-27 16:27 | NUR ---
SPOKE WITH DR GENTILE RE: BENOIT ORDERS, CLARIFICATION RECEIVED.
--- NOTE | 2019-10-27 18:58 | NUR ---
P: CONFUSED, ANXIOUS AND RESTLESS AT TIMES. I: ONE ON ONE, REDIRECTION, CHANGE OF ENVIRONMENT WITH LOW STIMULI. R: EFFECTIVE; PATIENT IS ALERT TO SELF WITH CONFUSION. COMMUNICATION BARRIER, USE EASE BOARD TO COMMUNICATE. MEMORY DEFICITS. NO RESPONSE TO INTERAL STIMULI OBSERVED. NO VOICED STATEMENT OF HI/SI OR PAIN. MEDICATION COMPLAINT. Q 15 MINUTE STAFETY CHECKS. 2 PERSON ASSIST WITH ACTIVITIES OF DIALY LIVING, INCONTINENT OF BOWEL AND BLADDER. SET UP FOR MEALS WITH ASSIST. INTAKES ARE GOOD. UP IN ABRAM CHAIR FOR COMFORT. UNSTEADY GAIT NOTED. NO AGGRESSION NOTED. P: CONTINUE TO MONITOR FOR AGGRESSION AND DIFFICULTY WITH HANDS ON CARE. PROVIDE ONE ON ONE, REDIRECTION AND CHANGE OF ENVIRONMENT NEEDED.
[2019-10-27 19:50] VITALS: BP 123/58
--- NOTE | 2019-10-27 19:50 | NUR ---
24 HR chart check completed.
--- NOTE | 2019-10-27 20:44 | NUR ---
EVENING/LEISURE SKILLS PT ATTENDED GROUP BUT DID NOT PARTICIPATE DUE TO SLEEPIGN ON AND OFF AT THIS TIME.
--- NOTE | 2019-10-28 06:05 | NUR ---
PT HAS SLEPT FOR APPROX 7 HOURS IN HIS BED.
--- NOTE | 2019-10-28 06:36 | NUR ---
GURU NAIDU [id number] Please refer to the physician's history and physical for past medical history, comorbid conditions, and allergies. Diagnosis: INTERMITTENT EXPLOSIVE DISORDER Enoc Score: 16,AT RISK WOUND DESCRIPTIONS: Wound Number: 2 Location of the wound: left elbow Type of wound: skin tear Thickness: Partial Size: 0.2cm x 0.3cm x 0.1cm Tunneling: none Undermining: none Sinus Tract: none Presence of Exudate: Serosanguineous Amount: Moderate Color: Red Odor: None Periwound Skin Appearance: Normal Wound edges: approximated Pain (associated with wound): none at time of assessment How does patient state this happened? pt unable to state how this happened Surface the patient is resting on: Proform SKIN PREVENTION RECOMMENDATION: 1. Pressure redistribution support surface as appropriate 2. Elevate heels 3. Remove boots/TEDS every shift and reapply 4. Head of bed 30 degrees as tolerated 5. Assess nutrition and hydration 6. Manage moisture 7. Avoid the use of containment devices while in bed 8. Use absorptive products on surfaces limit layers of linens on bed 9. Turn and reposition every 1-2 hours in bed and every 1 hour in chair as tolerated 10. Weight shifts every 15 minutes while up in chair 11. Offloading with pillows or device to keep heels elevated off bed 12. Monitor skin at least every shift 13. Inspect under medical devices twice a day WOUND TREATMENT RECOMMENDATIONS: Clarify skin tear guidelines: Cleanse left elbow with nss and apply sureprep around the wound hydrogel to wound bed and cover with optifoam gentle every 2 days and prn for soiling.
--- NOTE | 2019-10-28 06:55 | NUR ---
AM BEDSIDE GLUCOSE 83
[2019-10-28 08:00] VITALS: BP 127/68
--- NOTE | 2019-10-28 08:00 | NUR ---
TREATMENT PLAN MEETING WAS HELD WITH DR. RAYMOND, CARLOS THIBODEAUX, RN, AT, WARD MAID-S AND RURAL CARRIER. PLAN FOR DISCHARGE NEXT WEEK. PT. WILL REQUIRE ALTERNATE PLACEMENT DUE TO UNABLE TO RETURN TO [facility]. WILL REQUIRE [facility]. .
--- NOTE | 2019-10-28 09:06 | NUR ---
DR JOHNSON ON UNIT TO ASSESS PT, UPDATE PROVIDED.
--- NOTE | 2019-10-28 10:31 | NUR ---
Dr. Allen notified of wound care recommendations.
--- NOTE | 2019-10-28 11:57 | NUR ---
AM GROUP PT DID NOT ATTEND MORNING GROUP THERAPY. PT WAS IN BED RESTING.
--- NOTE | 2019-10-28 12:43 | NUR ---
SPEECH PATHOLOGY Clinical swallowing evaluation completed due to history of dysphagia. Patient was admitted from [facility] with diagnosis of intermittent explosive disorder. 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 Patient is ordered a pureed diet and thin liquid. Patient was seen during lunchtime meal. He was sitting upright in activity room with peers. Due to hearing impairment, communication was difficult. He did not always maintain eye contact or attention and was not able to read simple questions. He did not follow commands. His responses to questions were often inappropriate. He was not able to complete oral assessment. He was noted to be edentulous. Left labial asymmetry and weakness was displayed. Drooling was noted. He was able to feed himself with occasional assistance. He ate quickly and in large bites. Anterior loss of food and liquid was displayed due to labial weakness. No residue, no cough or wet vocal quality was noted. Recommend he remain on present diet, with cues to slow down and take small bites as he exhibits behaviors that increase aspiration risk. Short term f/u is recommend to ensure safety through education and adherence to swallowing precautions. Results and [place]. were shared with patient's nurse who verbalized understanding. Refer to report in [facility] for further information. Thank you for this referral. ANTONIA MORGAN MSCCC-CRIB ATTENDANT
--- NOTE | 2019-10-28 15:22 | NUR ---
PASRR COMPLETED ONLINE IN [facility]. REQUIRES FURTHER REVIEW. SUPPORTING DOCUMENTATION FAXED TO [facility] . COPY PLACED IN CHART UNDER DISCHARGE TAB.
--- NOTE | 2019-10-28 15:55 | NUR ---
PM GROUP PT DID NOT ATTEND AFTERNOON GROUP THERAPY. PT WAS IN BED RESTING.
[2019-10-28 19:51] VITALS: BP 122/64
--- NOTE | 2019-10-28 22:43 | NUR ---
Patient alert to person only with confusion noted. Memory deficits noted. Patient isolative to room this evening. No s/s of any responding to internal stimuli noted at this time. Patient compliant with HS medications without any difficulty. Attempted to provide emotional support but patient refused. Redirected/reoriented when needed. Plan to continue to encourage medication compliance. Also continue to offer emotional support and continue to redirect/reorient when needed/appropriate. Will continue to monitor moods/behaviors. Q 15 minute safety checks continued and maintained. See [facility] flowsheet for further documentation.
--- NOTE | 2019-10-29 00:37 | NUR ---
24 HR chart check completed.
--- NOTE | 2019-10-29 04:36 | NUR ---
Upon discharge recommend patient to follow up for wound care in outpatient setting continue current wound care orders at discharging facility.
--- NOTE | 2019-10-29 05:37 | NUR ---
Patient slept approx. 7 hours throughout shift. Q 15 minute safety checks continued and maintained.
--- NOTE | 2019-10-29 06:50 | NUR ---
Gave patient 2 containers of orange juice mixed with several packets of sugar. Will recheck patient's bedside glucose in an hour.
--- NOTE | 2019-10-29 06:57 | NUR ---
Called and notified Dr. Cowart regarding low blood sugar,orange juice with sugar was given and that this nurse will recheck blood sugar in [address] Cowart said ok.
[2019-10-29 08:00] VITALS: BP 124/72
--- NOTE | 2019-10-29 10:00 | NUR ---
PHYSICAL THERAPY Called U unit pt unavailable for PT eval as sleeping will follow Janis Baird PT
--- NOTE | 2019-10-29 10:10 | NUR ---
Patient not available for occupational therapy as he is in bed per staff when OTR phoned for evaluation. OTR will attempt at another date. Johnna Melchor OTr/donte
--- NOTE | 2019-10-29 10:24 | NUR ---
TREATMENT PLAN MEETING WAS HELD WITH DR. RAYMOND, RN, AT, SECURITY SCREENER-S AND ROADING ENGINEER, PLAN FOR DISCHARGE NEXT WEEK. PT. WILL REQUIRE PLACEMENT. PASRR COMPLETED AND PENDING.
--- NOTE | 2019-10-29 12:00 | NUR ---
AM GROUP PT DID NOT ATTEND MORNING GROUP THERAPY. PT WAS IN BED RESTING
--- NOTE | 2019-10-29 12:18 | NUR ---
SPEECH PATHOLOGY Patient was seen for treatment this pm during lunchtime meal. Patient was alert and pleasant. Tray set up was provided by clinician then he was able to feed himself. Patient ate more slowly than yesterday but was still observed to take large bites. Visual cue was provided to take smaller amounts and this was helpful. Mild anterior loss of food and liquid was observed due to labial weakness. Patient displayed good intake of the meal and there was no coughing or wet vocal quality displayed. Recommend he remain on pureed diet and thin liquid with continued visual cues as needed to ensure patient is eating slowly and in small amounts. Continue therapy plan short term. ANTONIA MORGAN MS CCC-RESTORATION TECHNICIAN
--- NOTE | 2019-10-29 15:00 | NUR ---
Physical Therapy evaluation completed with full evaluation to follow. Recommend physical therapy per plan of care and SNF upon discharge. Thank you for this referral. Janis Baird PT
--- NOTE | 2019-10-29 15:00 | NUR ---
Occupational Therapy evaluation completed on 3N with full evaluation to follow. Recommend occupational therapy per plan of care and SNF upon discharge. Thank you for this referral. Anyi Melchor OTr/l
[2019-10-29 20:00] VITALS: BP 134/72
--- NOTE | 2019-10-29 21:26 | NUR ---
P--DEPRESSED, HOPELESS/HELPLESS I--DISCUSSED MEDICATION AND GIVEN PILLS IN APPLESAUCE. NOTED LARGE AMOUNT OF DROOLING. EMOTIONA SUPPORT PROVIDED. SNACKS PROVIDED BY STAFF R--HI. STUFF KEEPS RUNNING OUT OF MY MOUTH P--MONITOR FOR CHANGE IN BEHAVIOR/MOOD. MONITOR Q 15 MINUTES AND PRN FOR SAFETY
--- NOTE | 2019-10-30 00:35 | NUR ---
24 HR chart check completed.
--- NOTE | 2019-10-30 06:09 | NUR ---
SLEPT WELL FOR 7.5 HOURS. ONE AWAKENING.
--- NOTE | 2019-10-30 07:35 | NUR ---
PHYSICAL THERAPY Patient seen this am for therapy visit and was sitting up in activity room chair upon therapist arrival. Patient identified by name / and was very [place] this session. OT assistant tennis coach was also present for observation only this session as patient tranafers sit to stand CGA x 1. Patient ambulated CGA, no AD, to his bathroom, 100'x 2, demonstrating several bouts of unsteady gait pattern. Patient improved B arm swing following visual demonstration with Therapist walking beside patient to promote smoother alexsandra. Patient returned to activity room chair at table awaiting breakfast, under [facility] [place] staff Supevision. Will continue per POC as tolerated, total treatment time 17 minutes. Tom Ruth, PARALEGAL SECRETARY
--- NOTE | 2019-10-30 07:40 | NUR ---
OT NOTE Prior to coming to the floor spoke with charge nurse Yaneth and reported that therapy was coming to the floor to treat this pt. Pt was seen this A.M. 1:1 for 25 minute OT session with TURBO OPERATOR and nursing staff present for observation only. Pt identified by name and and had no complaints at this time. Upon arrival pt was sitting upright in the dining john. Pt completed sit to stand from chair level with CGA followed by functional mobility into the bathroom with CGA BENCH MACHINE OPERATOR. There he transferred on/off standard commode with CGA for safety. Pt then stood sink side while washing his hands with CGA. Pt had two LOB throughout that required Nan to correct. Functional mobility was then completed back to the dining john. Pt's breakfast tray then arrived and was able to complete self feeding with supervision while managing all utensils and drinks with supervision. Pt was left sitting upright in the dining john under [facility] staff supervision. Continue with rec D/C plan to SNF. CANDACE Estes
[2019-10-30 08:00] VITALS: BP 127/58
--- NOTE | 2019-10-30 08:00 | NUR ---
Patient eating breakfast in dining room with peers. Respirations easy and regular. Vital signs stable. No overt distress. TARIQ ALMEIDA PHMNP-BC on unit to see pt at this time. Update given.
--- NOTE | 2019-10-30 08:00 | NUR ---
TREATMENT PLAN MEETING WAS HELD WITH CARLOS THIBODEAUX, RN, AT, INFORMATION SYSTEMS MANAGER-S AND CLIPPER OPERATOR. PLAN FOR DISCHARGE NEXT WEEK. PT. REQUIRES PLACMENT. REFERRAL FAXED TO [facility] AND IS PENDING.
--- NOTE | 2019-10-30 12:29 | NUR ---
SPEECH THERAPY Patient seen for swallowing treatment this am. Patient was sleeping in bed upon clinician arrival. He was easily aroused with tactile stimulion. Verbal communication was supplemented with gestures and written messages to improve patient understanding. Patient was repositioned to upright in bed. He consumed a small snack consisting of applesauce and thin liquids by straw. Visual cues with picture and written strategies provided to patient to assist in use of compensatory safe swallowing strategies. Patient consumed his snack at a slow rate, and took small sips of liquids. His bite size was impulsively and consistently large. Smaller bite was modeled by clinician which assisted in reducing size, although it remained large. No overt s/s of penetration/aspiration observed throughout treatment session. Although his bite size remains large, he comsumed small sips of liquid and ate a slow rate. Educated nursing staff on providing visual cues to patient to assist in reducing size of bites. Patient will be discharged from speech therapy services at this time. Should a change in oropharyngeal swallow function occur, this department will be available for re-consultation. Jahaira Castro MA CCC-STEEL GRINDER
--- NOTE | 2019-10-30 12:41 | NUR ---
AM GROUP PT DID NOT ATTEND MORNING GROUP THERAPY.PT WAS IN BED RESTING.
--- NOTE | 2019-10-30 12:45 | NUR ---
SPOKE WITH ELIZABETH AT [facility]. PROVIDED WITH UPDATES TO REFERRAL AND FAXED CLINICAL UPDATES . ADVISED OF PLANS TO DISCHARGE NEXT WEEK.
--- NOTE | 2019-10-30 14:19 | NUR ---
PHYSICAL THERAPY CO-SIGN I approve of the Physical Therapy notes written above. Janis Baird PT
--- NOTE | 2019-10-30 15:06 | NUR ---
OCCUPATIONAL THERAPY CO-SIGN I approve of the Occupational Therapy notes written above. TIMMY AHMADI OTR/Tate
--- NOTE | 2019-10-30 15:37 | NUR ---
PM GROUP PT DID NOT ATTEND AFTERNOON GROUP THERAPY.PT WAS IN BED NAPPING.
--- NOTE | 2019-10-30 17:23 | NUR ---
PASRR RETURNS APPROVED. PT. IS RULED OUT FROM FURTHER REVIEW. MAY ENTER NURSING FACILITY AT DISCHARGE.
--- NOTE | 2019-10-30 17:37 | NUR ---
P- CONFUSION, HEARING/COMMUNICATION DEFICIT, ISOLATIVE I- ORIENTATION, MOOD AND BEHAVIORS ASSESSED. ASSESSED PT FOR SI/HI, INTENT OR PLAN. ASSESSED PT FOR S/S HALLUCINATIONS, PARANOIA AND/OR DELUSIONS. MEDICATIONS ADMINISTERED PER PHYSICIAN'S ORDERS. ASSISTANCE WITH ADL CARE PROVIDED NEEDED. ENCOURAGED PT TO ATTEND AND PARTICIPATE IN [place] GROUPS AND ACTIVITIES. R- PT IS ALERT WITH CONFUSION, HEARING/COMMUNICATION DEFICIT NOTED. RESPS EASY AND EVEN ON ROOM AIR. PT IS ABLE TO COMMUNICATE EASIEST WHEN STAFF UTILIZES WRITTEN WORD TO ASK PT QUESTIONS AND THEN PT IS ABLE TO ANSWER APPROPRIATELY. SPEECH IS LOUD, GARBLED AT TIMES, PT IS ABLE TO MAKE NEEDS KNOWN WITHOUT DIFFICULTY. MOOD IS STABLE, AFFECT IS BROAD RANGE AND APPROPRIATE. PT DENIES SI/HI, INTENT OR PLAN. PT DENIES HALLUCINATIONS, NO RESPONSE TO INTERNAL STIMULI NOTED. NO PARANOIA OR DELUSIONS NOTED. PT IS CALM, PLEASANT AND COOPERATIVE. NO AGGRESSIVE BEHAVIORS DISPLAYED. MED COMPLIANT WITHOUT DIFFICULTY. PT ISOLATIVE TO ROOM, PT UNABLE TO PARTICIPATE IN GROUPS/ACTIVITIES D/T HEARING/COMMUNICATION DEFICITS. PT COMES OUT FOR MEALS AND VISITS WITH FAMILY. NO DISTRESS NOTED. P- PLAN TO CONTINUE CURRENT TREATMENT, CONTINUE TO MONITOR MOOD AND BEHAVIORS, PROVIDE APPROPRIATE REORIENTATION, REDIRECTION AND 1:1 NEEDED. CONTINUE TO ENCOURAGE MEDICATION COMPLIANCE WELL GROUP ATTENDANCE AND PARTICIPATION.
[2019-10-30 20:00] VITALS: BP 128/64
--- NOTE | 2019-10-30 21:41 | NUR ---
Patient alert to person only with confusion noted. Memory deficits noted. Patient isolative to room this evening. No s/s of any responding to internal stimuli noted at this time. Patient compliant with HS medications without any difficulty. Provided emotional support. Redirected/reoriented when needed. Plan to continue to encourage medication compliance. Also continue to offer emotional support and continue to redirect/reorient when needed/appropriate. Will continue to monitor moods/behaviors. Q 15 minute safety checks continued and maintained. See [facility] flowsheet for further documentation.
--- NOTE | 2019-10-31 00:30 | NUR ---
24 HR chart check completed.
--- NOTE | 2019-10-31 05:42 | NUR ---
Patient slept approx. 1.5 hrs throughout shift. Q 15 minute safety checks continued and maintained.
[2019-10-31 08:00] VITALS: BP 136/87
--- NOTE | 2019-10-31 09:34 | NUR ---
Patient in dining room with peers with no c/o discomfort. Respirations easy and regular. Vital signs stable. No overt distress. CHAS RAMEY
--- NOTE | 2019-10-31 11:46 | NUR ---
AM GROUP/LEISURE SKILLS PT IN [place] BEGINNING OF GROUP AND CHOOSE NOT TO STAY IN DAYROOM. PT SWITCHED CHAIRS AND CAME BACK INTO THE DAY ROOM AND PAINTED A BIRDHOUSE. PT REMIANED ON TASK WITH PAINTING AND EXRPRESSED NO O=COMBATIVE BEHAVIORS AT THIS TIME. PT WILL CONTINUE TO BE ENCOURAGED TO ATTEND/PARTICIPATE TO BEST OF PT ABILITY.
--- NOTE | 2019-10-31 15:58 | NUR ---
PM GROUP/LEISURE SKILLS PT ATTENDED AND PARTICIPATED WITH THIS STAFF THROUGH A LITTLE BIT OF SIGN LANGUAGE. THIS STAFF AND PT TALKING ABOUT BIRDS AND WHAT PICTURES TO ADD TO PT BIRDHOUSE. PT PLEASANT WITH NO COMBATIVE BEHAVIORS EXPRESSED. PT WILL CONTINUE TO ATTEND/PARTICIPATE TO BEST OF PT ABILITY.
[2019-10-31 20:00] VITALS: BP 116/67
--- NOTE | 2019-10-31 21:49 | NUR ---
Patient alert to person only with confusion noted. Memory deficits noted. Patient interactive with staff and other patients during snacks in diningroom. Mood calm,pleasant and cooperative at this time. No s/s of any responding to internal stimuli noted at this time. Patient compliant with HS medications without any difficulty. Provided emotional support. Redirected/reoriented when needed. Plan to continue to encourage medication compliance. Also continue to offer emotional support and continue to redirect/reorient when needed/appropriate. Will continue to monitor moods/behaviors. Q 15 minute safety checks continued and maintained. See [facility] flowsheet for further documentation.
--- NOTE | 2019-11-01 00:15 | NUR ---
24 HR chart check completed.
--- NOTE | 2019-11-01 05:54 | NUR ---
Patient slept approx. 7 hours throughout shift. Q 15 minute safety checks continued and maintained.
[2019-11-01 08:00] VITALS: BP 115/62
--- NOTE | 2019-11-01 12:14 | NUR ---
AM GROUP/EXERCISE/BRAIN GAMES PT IN [place]END[place]CE BUT CHOSE NOT TO PARTICIPATE. PT ENCOURAGED WITH MULTIPLE ACTIVITY'S, BUT EVENTUALLY FELL ASLEEP. PT EXPRESSES SOME CONFUSION BUT NO COMBATIVE BEHAVIORS AT THIS TIME. PT WILL BE ENCOURAGED TO ATTEND ANDPARTICIPATE IN FUTURE GROUP SESSIONS TO BEST OF PT ABILITY.
[2019-11-01 20:00] VITALS: BP 113/58
--- NOTE | 2019-11-01 23:23 | NUR ---
Patient alert to person only with confusion noted. Memory deficits noted. Patient interactive with staff and other patients during snacks in diningroom. Mood calm,pleasant and cooperative at this time. No s/s of any responding to internal stimuli noted at this time. Patient compliant with HS medications without any difficulty. Provided emotional support. Redirected/reoriented when needed. Plan to continue to encourage medication compliance. Also continue to offer emotional support and continue to redirect/reorient when needed/appropriate. Will continue to monitor moods/behaviors. Q 15 minute safety checks continued and maintained. See [facility] flowsheet for further documentation.
--- NOTE | 2019-11-02 00:44 | NUR ---
24 HR chart check completed.
--- NOTE | 2019-11-02 05:50 | NUR ---
Patient slept approx. 7 hours throughout shift. Q 15 minute safety checks continued and maintained.
--- NOTE | 2019-11-02 06:38 | NUR ---
Patient was given and he drank 2 containers of orange juice with 5 packets of sugar mixed in. Will check his bedside glucose in 1 hour.
--- NOTE | 2019-11-02 06:45 | NUR ---
Called and notified Dr. Houser regarding low blood sugar and that he was given orange juice with sugar mixed in. Dr. Houser said to check blood sugar in five minutes from now.
--- NOTE | 2019-11-02 06:56 | NUR ---
Rechecked bedside glucose as per request of Dr. Houser and it read 83.
--- NOTE | 2019-11-02 07:35 | NUR ---
PHYSICAL THERAPY Patient seen this am for therapy visit and was sitting up in activity room Katya chair upon theapist arrival. Patient identified by name / and was very pleasant, however very [place]. OT medical billing assistant was also present for observation only this session as patient needed both visual / tactile cues to complete all therapy. Patient transfers sit to stand MIN A and ambulates ELECTRIC METER TESTER/CGA, demonstrating L side gait deviation, decreased B arm swing and L LE scissoring gait pattern at times, 75'x 2. Patient also is easily distracted, requiring v/c to improve focus on task and returned to activity room chair at table awaiting breakfast, under [facility] staff Supervision. Will continue per POC as tolerated, total treatment time 15 minutes. Tom Ruth, BEAM DYER RECESSED VAT
--- NOTE | 2019-11-02 07:45 | NUR ---
OT NOTE Prior to coming to the floor spoke with charge nurse Clara and reported that therapy would be coming to the floor to treat this pt. Pt was seen this A.M. 1:1 for 15 minute OT session. Pt identified by name and and had no complaints at this time. Upon arrival pt was sitting upright in the dining john. Sit to stand completed from chair level with CGA followed by functional mobility to the bathroom with CGA WIRE TAPER, throughout pt presented with L lateral lean and multiple LOB to the L that required Nan to correct. Pt transferred on/off standard commode with CGA and use of grab bar for UE support. Clothing management completed with Nan due to being unsteady without UE support. Pt then stood sink side while washing his hands with CGA, again pt had two LOB that occured to the L while standing without UE support requiring Nan to correct. After task in the bathroom of aprox 5 minutes pt requested a seated rest break due to fatigue. Functional mobility was then completed back to the dining john with CGA WIRE TAPER. There he was left sitting upright under [facility] staff supervision. Continue with rec D/C plan to SNF. EFREM Estes/Tate
[2019-11-02 07:51] VITALS: BP 117/61
--- NOTE | 2019-11-02 09:40 | NUR ---
TREATMENT PLAN MEETING WAS HELD WITH CARLOS THIBODEAUX RN, DISTRICT AGENT-S AND CORN CROP SUPERVISOR. PLAN FOR DISCHARGE WHEN STABLE. PT. HAS BEEN REFERRED TO [facility]. ELIZABETH FROM [facility] CAME TO SEE PT. FOR ONSITE ASSESSMENT TODAY. PT. HAS 7 SKILLED DAYS LEFT AND THEN WILL ENTER CO-PAY DAYS AT $170.00 A DAY.
--- NOTE | 2019-11-02 12:01 | NUR ---
Left a voicemail message for pt's son-in-law/surrogate King Kempdung requesting a return call to discuss discharge options for pt. Await return call.
--- NOTE | 2019-11-02 14:49 | NUR ---
Was told by nursing that pt's surrogate King Kempdung believes that pt cannot discharge to an [facility] because pt must wait 1 year before applying for Medicaid. Maloy from [employer], communications planner, that [facility] employee had given this information to King. As this SALES REPRESENTATIVE DOOR TO DOOR-S had never heard of this before, this marketing copywriter researched this and found that there is a federal law that prevents states from requiring a length of residency before applying for Medicaid. This would allow pt's surrogate to apply for [place] Medicaid for pt immediately. Provided this information to [facility] ([place], [place]) liaison, who was going to follow-up with [facility].
--- NOTE | 2019-11-02 15:33 | NUR ---
PT HAD BEEN RESTING IN BED EARLIER THIS SHIFT WHEN HE ATTEMPTED TO GET UP WITHOUT STAFF, WHEN MALE STAFF MEMBER RESPONDED TO ALARMS PT RESPONDED WITH "WHY DON'T YOU GO GET ME THOSE GIRLS" WITH A SEXUAL TONE TO HIS VOICE WHILE HAVING HIS HANDS NEAR SONU AREA. REDIRECTED APPOPRIATE.
--- NOTE | 2019-11-02 15:53 | NUR ---
PT YELLING OUT FOR STAFF, SCREAMING AT NURSES STATION, UNABLE TO DETERMIN WHAT PT WANTS, COMMUNICATION BOARD USED DUE TO PT IS HARD OF HEARING. INTTERMITTENTLY CALMED WITH 1:1 THEN WOULD SCREAM LOUDLY FOR NO APPARENT REASON HITTING HAND ON NURSES STATION WINDOW, REDIRECTION, TOILETING, MERRY WALKER NOT EFFECTIVE. PT ATTEMPTED TO BE AMBULATED IN THE HALLWAY WITH STAFF BUT BECAME INCREASINGLY SEXUAL WITH STAFF. ATIVAN GIVEN PER PRN ORDER DUE TO ANXIETY
--- NOTE | 2019-11-02 16:06 | NUR ---
PT CONTINUES TO BE CALMED WITH STAFF BY SOOTHING IMAGES OF FAMILY. WHEN AMBULATING WITH STAFF, PT NOTED TO BE WAVING AND SMILING SEXUALLY TOWARD STAFF AND PEERS, REDIRECTED NEEDED.
--- NOTE | 2019-11-02 16:40 | NUR ---
PT. ACCEPTED AT [facility]. WILL DISCHARGE WHEN STABLE.
[2019-11-02 19:42] VITALS: BP 121/69
--- NOTE | 2019-11-02 21:00 | NUR ---
ARGUMENTATIVE WITH FEMALE PEER. ANGRY AND YELLING AT HER. REMOVED FROM SITUATION AND REDIRECTED. OVERLY FLIRTATIOUS WITH STAFF WITH A FEW INAPPROPRIATE REMARKS. REDIRECTED
--- NOTE | 2019-11-02 21:18 | NUR ---
P--CONFUSED I--MEDICATED PER ORDERS. NOTED NO CHANGE IN DROOLING. GAIT FAIR WITH ONE ASSIST. REFUSED ORAL CARE. DEPENDS CHANGED AND CLOTHING CHANGED PRIOR TO BED. SNACKS AND FLUIDS PROVIDED BY STAFF I--SMILING WITH NONSENSICLE SENTENCES. MEDICATION COMPLIANT P--MONITOR BEHAVIOR/MOOD FOR CHANGES/ MONITOR Q 15 MINUTES AND PRN FOR SAFETY. BE AVAILABLE FOR EMOTIONAL AND PHYSICAL CARE
--- NOTE | 2019-11-03 03:46 | NUR ---
24 HR chart check completed.
--- NOTE | 2019-11-03 06:22 | NUR ---
GURU NAIDU [id number] Please refer to the physician's history and physical for past medical history, comorbid conditions, and allergies. Diagnosis: INTERMITTENT EXPLOSIVE DISORDER Enoc Score: 16,AT RISK WOUND DESCRIPTIONS: Wound Number: 1 Location of the wound: coccyx Type of wound: stage 2 Thickness: Partial Size: 2.0cm x 0.5cm x 0.1cm Tunneling: none Undermining: none Sinus Tract: none Presence of Exudate: Serous Amount: Light Color: Red Odor: None Periwound Skin Appearance: Normal Wound edges: approximated Pain (associated with wound): none at time of assessment How does patient state this happened? pt unable to state how this happened Intact scabbed areas noted to left hand, left knee and right knee. No drainage noted at time of assessment. No redness noted at time of assessment. Wound Number: 2 Location of the wound: left elbow Type of wound: scab Thickness: Partial Size: 0.2cm x 0.3cm x 0.1cm Tunneling: none Undermining: none Sinus Tract: none Presence of Exudate: none Amount: none Color: Red Odor: None Periwound Skin Appearance: Normal Wound edges: approximated Pain (associated with wound): none at time of assessment How does patient state this happened? pt unable to state how this happened Surface the patient is resting on: Proform SKIN PREVENTION RECOMMENDATION: 1. Pressure redistribution support surface as appropriate 2. Elevate heels 3. Remove boots/TEDS every shift and reapply 4. Head of bed 30 degrees as tolerated 5. Assess nutrition and hydration 6. Manage moisture 7. Avoid the use of containment devices while in bed 8. Use absorptive products on surfaces limit layers of linens on bed 9. Turn and reposition every 1-2 hours in bed and every 1 hour in chair as tolerated 10. Weight shifts every 15 minutes while up in chair 11. Offloading with pillows or device to keep heels elevated off bed 12. Monitor skin at least every shift 13. Inspect under medical devices twice a day WOUND TREATMENT RECOMMENDATIONS: Continue Stage 2 guidelines: Cleanse coccyx with soap and water and apply calazime every shift and prn for soiling. Continue wheelchair cushion when oob. Continue skin tear guidelines: Cleanse left elbow with nss and apply sureprep around the wound hydrogel to wound bed and cover with optifoam gentle every 2 days and prn for soiling.
--- NOTE | 2019-11-03 07:50 | NUR ---
PHYSICAL THERAPY Patient seen this am for therapy visit and was sound asleep in bed upon therapist arrival. Patient identified by name / on wrist band and is very [place]. Patient able to read written communications and was joined by OT assistant manager who was present for observation only this session. Patient needed MAX encouragemnt with both visual / tactile cues to transfer supine to sit EOB with MAX A, however only tolerated 10 seconds static EOB sit prior to returning to supine in bed SBA. Patient able to re-attempt supine to sit transfer with MOD A x 2, then sit to stand MOD/GENERAL OPERATIONS AGENT x 2, ambulating GENERAL OPERATIONS AGENT/MIN x 2, demonstrating very "wobbly" gait pattern and decreased stride. Patient returned to activity room Katya chair and reamined with lap tray, body alarm, under [facility] staff Supervision. Will continue per POC as tolerated, total treatment time 14 minutes. Tom Ruth, GUN PERFORATOR LOADER
--- NOTE | 2019-11-03 07:56 | NUR ---
OT NOTE Prior to coming to floor spoke with charge nurse Yaneth and reported that therapy would be coming to the floor to treat this pt. Pt was seen this A.M. 1:1 for 16 minute OT session with DIRECTOR FOR [employer] and nursing staff present for observation only. Upon arrival pt was supine in bed. Pt identified by name and and had no complaints at this time. Pt transferred supine to sit EOB with maxA X 2 and then threw himself back into bed and then transferred supine to sit EOB with modA X 2 second attempt followed by modA X 2 for sit to stand from bed level. Upon inital rise pt presented with retrograde posture requiring modA to correct. Functional mobility was then completed to the leigh ann chair with Nan SCHOOL BUS DRIVER/MECHANIC, pt had several bouts of unsteady stance that required Nan to correct. Pt was left sitting upright in the leigh ann chair in the dining john under [facility] staff supervision with lap tray in place and body alarm activated for safety. Continue with rec D/C plan to SNF. EFREM Estes/Tate
[2019-11-03 08:16] VITALS: BP 100/51
--- NOTE | 2019-11-03 09:00 | NUR ---
TREATMENT PLAN MEETING WAS HELD WITH DR. RAYMOND, CARLOS THIBODEAUX, RN, AT, HYDRO ELECTRIC STATION OPERATOR-S AND INSPECTOR WATCH ASSEMBLY. PLAN FOR DISCHARGE SATURDAY. PT. ACCEPTED TO [facility].
--- NOTE | 2019-11-03 11:50 | NUR ---
AM GROUP/EXERCISE AND PARACHUTE PT ATTENDED MORNING GROUP THERAPY AND PARTICIPATED IN ALL ACTIVITIES. PT WAS THE "CLASS CLOWN" AND ENJOYED BEING PLAYFUL. PT EXHIBITED NO COMBATIVE BEHAVIORS WHILE IN GROUP.
--- NOTE | 2019-11-03 15:44 | NUR ---
PM GROUP/CRAFTS PT DID NOT ATTEND AFTERNOON GROUP THERAPY. PT WAS IN BED RESTING.
--- NOTE | 2019-11-03 17:19 | NUR ---
PT IS CONFUSED. [place]. PT AMBULATED DOWN HALLS SEVERAL TIMES T/O DAY WITH STAFF ASSIST. GAIT OCCASIONALLY UNSTEADY. PT EDUCATED ORDER CLERK DON'T FALL. COMMUNICATED WITH PT THROUGH WRITING. PT IS PLEASANT, COOPERATIVE. MEDICATION COMPLIANT. NO ADVERSE MOODS OR BEHAVIORS PRESENT AT THIS TIME. WILL CONTINUE TO ENCOURAGE PT TO AMBULATE TO MAINTAIN MAXIMUM FUNCTIONING. WILL ENCOURAGE CONTINUED MEDICATION COMPLIANCE. Q15 MIN MONITORING PER POLICY FOR SAFETY.
[2019-11-03 19:45] VITALS: BP 102/61
--- NOTE | 2019-11-03 20:45 | NUR ---
P--CONFUSION I--WALKED IN HALLWAY WITH STAFF. MEDICATED PERORDERS. SNACKS AND DRINKS PROVIDED BY STAFF. DECREASED DROOLING NOTED R--I AM TIRED. GIVE ME MEDS. P--MONITOR FOR BEHAVIOR/MOOD MONITOR Q 15 MINUTES AND PRN FOR SAFETY. BE AVAILABLE FOR EMOTIONAL SUPPORT AND PHYSICAL SUPPORT.
--- NOTE | 2019-11-04 05:27 | NUR ---
24 HR chart check completed.
--- NOTE | 2019-11-04 06:44 | NUR ---
PATIENT SLEPT 8 HOURS OF INTERRUPTED SLEEP THROUGHOUT SHIFT. Q 15 MINUTE CHECKS MAINTAINED. 24 HR chart check completed.
--- NOTE | 2019-11-04 06:51 | NUR ---
AM BEDSIDE GLUCOSE 77
--- NOTE | 2019-11-04 07:00 | NUR ---
OT NOTE Prior to coming to floor spoke with charge nurse Tabitha and reported that therapy would be coming to the floor to treat this pt. Pt was seen this A.M. 1:1 for 15 minute OT session with PERIODONTAL ASSISTANT and nursing staff present for observation only. Upon arrival pt was sitting upright on the EOB. Pt identified by name and and had no complaints at this time. Pt donned shirt with modA and socks with maxA due to pt being unable to follow simple commands. Sit to stand completed from bed level with CGA followed by functional mobility to the dining john with CGA TEXTILE SUPERVISOR. Throughout pt had three LOB that required Nan to correct. Pt was left sitting upright in the dining john under [facility] staff supervision. Continue with rec D/C plan to SNF. EFREM Estes/Tate
--- NOTE | 2019-11-04 07:20 | NUR ---
PHYSICAL THERAPY Patient seen this am for therapy visit and was sitting up in activity room chair at table upon therapist arrival. Patient identified by name / and is very [place]. OT staff physical therapy assistant present this morning for observation only as patient needed both visual / tactile cues secondary to decreased command follow / slow processing. Patient performed seated B LE therex, all planes, x 10 reps each, followed by gait training, SENIOR REGULATORY AFFAIRS SPECIALIST/CGA, 75'x 1, demonstrating decreased stride and bouts of unsteady gait pattern. Patient returned to activity room chair under [facility] staff Supervision and will continue per POC as tolerated, total treatment time 16 minutes. Tom Ruth, CHIEF COMPLIANCE OFFICER
[2019-11-04 07:46] VITALS: BP 117/67
--- NOTE | 2019-11-04 08:30 | NUR ---
TREATMENT PLAN MEETING WAS HELD WITH DR. RAYMOND, CARLOS THIBODEAUX, RN, AT, DIRECTOR PLANS-S AND ORDER ENTRY SPECIALIST. PLAN FOR DISCHARGE TODAY. PT. IS ACCEPTED TO [facility]. TRANSPORTATION ARRANGED WITH [facility] TO TRANSPORT WITH EXECUTIVE DIRECTOR OF MARKETING TIME 12:30. CALL PLACED TO [facility] AND LEFT MESSAGE TO NOTIFY OF DISCHARGE AND EXECUTIVE DIRECTOR OF MARKETING TIME.
--- NOTE | 2019-11-04 10:15 | NUR ---
CALL PLACED TO HOSPITALIST CELL #2 FOR , SPOKE TO , MADE AWARE OF DISCHARGE FOR TODAY AT 12:30.
[2019-11-04] MEDS ORDERED: ROZEREM8 MG PO (10:19)
[2019-11-04] MEDS ORDERED: EXELON13.3 MG/21 T (10:19)
[2019-11-04] MEDS ORDERED: DIVALPROEX SOD125 M1 PO ×2 (10:19)
[2019-11-04] MEDS ORDERED: MEMANTINE HCL10 MG PO (10:19)
--- NOTE | 2019-11-04 10:33 | NUR ---
NO ADVERSE MOODS OR BEHAVIORS THIS SHIFT. PT IS ALERT, PLEASANTLY CONFUSED, RESPS EASY AND EVEN ON ROOM AIR, HARD OF HEARING WITH ALTERED SPEECH PATTERN PER BASELINE. ABLE TO MAKE NEEDS KNOWN WITHOUT DIFFICULTY. MOOD IS STABLE, AFFECT APPROPRIATE. PT DENIES SI/HI, INTENT OR PLAN. PT DENIES HALLUCINATIONS, NO RESPONSE TO INTERNAL STIMULI NOTED. NO PARANOIA OR DELUSIONS NOTED. PT IS CALM, PLEASANT AND COOPERATIVE. MED COMPLIANT WITHOUT DIFFICULTY. NO AGGRESSIVE BEHAVIORS DISPALYED. NO DISTRESS NOTED. PT IS TO BE DISCHARGED FROM THE UNIT TODAY TO [facility]. PT SHOWERED AND SHAVED THIS AM. PLAN TO ASSIST PT IN PREPARING FOR HOSPITAL DISCHARGE THIS AFTERNOON.
--- NOTE | 2019-11-04 11:45 | NUR ---
AM GROUP/MUSIC AND ART PT WAS PRESENT FOR MORNING GROUP THERAPY BUT CHOSE NOT TO PARTICIPATE. PT IS READYING TO BE DISCHARGED FROM THE UNIT THIS AFTERNOON
--- NOTE | 2019-11-04 11:47 | NUR ---
NURSE TO NURSE REPORT GIVEN TO MIKE PAGE [facility].
[2019-11-04] MEDS ORDERED: LANTUS SOL100 UNIT/1 SC (12:30)
--- NOTE | 2019-11-04 12:51 | NUR ---
PT DISCHARGED AT THIS TIME TO [facility] VIA [facility]. ALL PERSONAL BELONGINGS WERE SENT WITH THE PT. DISCHARGE INSTRUCTIONS PROVIDED FOR FACILITY AND WILL BE PROVIDED TO PT'S HEALTHCARE SURROGATE. 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
--- NOTE | 2019-11-06 07:08 | NUR ---
PHYSICAL THERAPY CO-SIGN I approve of the Physical Therapy notes written above. Janis Baird PT
--- NOTE | 2019-11-06 12:31 | NUR ---
OCCUPATIONAL THERAPY CO-SIGN I approve of the Occupational Therapy notes written above. TIMMY AHMADI OTR/Tate
== END 2019-11-04 12:38 | disposition other institution (70) | DRG 883 ==
LOC: 3N 15:41
PROVIDERS: Counselor Professional; Internal Medicine; ADMIT Psychiatry & Neurology Psychiatry
DX: F63.81 Intermittent explosive disorder (principal); F02.81 Dementia in other diseases classified elsewhere, unspecified severity, with behavioral disturbance; F23 Brief psychotic disorder; E11.65 Type 2 diabetes mellitus with hyperglycemia; G30.9 Alzheimer's disease, unspecified; R74.0 Nonspecific elevation of levels of transaminase and lactic acid dehydrogenase [LDH]; I10 Essential (primary) hypertension; H91.93 Unspecified hearing loss, bilateral; E55.9 Vitamin D deficiency, unspecified; R41.9 Unspecified symptoms and signs involving cognitive functions and awareness; D64.9 Anemia, unspecified; E11.649 Type 2 diabetes mellitus with hypoglycemia without coma; Z86.73 Personal history of transient ischemic attack (TIA), and cerebral infarction without residual deficits; Z79.899 Other long term (current) drug therapy; Z79.82 Long term (current) use of aspirin; Z79.02 Long term (current) use of antithrombotics/antiplatelets